=== PATIENT | male | born 1990 | race African-American/Black ===

== ENCOUNTER → 2021-08-07 | Outpatient (CLI) | payer OTHER | LOC: M WUC 15:02 | PROVIDERS: ATTEND Physician Assistant | DX: M54.32 Sciatica, left side (principal) ==

== ENCOUNTER → 2022-06-10 | Outpatient (CLI) | payer OTHER | LOC: M PLARAD 12:41 | PROVIDERS: ATTEND Nurse Practitioner Family | DX: M54.16 Radiculopathy, lumbar region (principal) ==